=== PATIENT | female | born 1980 | race Caucasian/White ===

== ENCOUNTER → 2017-05-15 | Outpatient (CLI) | payer OTHER ==
[2016-09-21 19:32] VITALS: BP 132/52
[2017-05-15 11:02] LABS: BILIRUBIN,URINE NEGATIVE (NEGATIVE); BLOOD/HEMOGLOBIN,URINE 5+ (NEGATIVE); GLUCOSE, URINE NEGATIVE (NEGATIVE); KETONES,URINE NEGATIVE (NEGATIVE); LEUKOCYTE ESTERASE ,URINE NEGATIVE (NEGATIVE); NITRITES,URINE NEGATIVE (NEGATIVE); PROTEIN,URINE 1+ (NEGATIVE); UROBILINOGEN,URINE NORMAL (NORMAL)
[2017-05-15 11:12] LABS: APPEARANCE,URINE CLOUDY (CLEAR); BACTERIA,URINE NEGATIVE /HPF (NEGATIVE); COLOR,URINE YELLOW (YELLOW); RBC,URINE 20-30 /HPF (NEGATIVE); SQUAMOUS EPITHELIAL CELL,UR RARE /HPF (NEGATIVE)
[2017-05-15 11:15] LABS: BLOOD UREA NITROGEN 9 mg/dL (7-18); CARBON DIOXIDE 28.1 mmol/L (21-32); CHLORIDE 106 mmol/L (98-107); COR NA(FOR HYPERGLY) 142 mmol/L (136-145); CREATININE 0.73 mg/dL (0.55-1.02); GLUCOSE 128 mg/dL (65-99); SERUM PREGNANCY TEST, QUAL NEGATIVE <10 mIU/mL; SODIUM 141 mmol/L (136-145); eGFR BLACK RACES > 60 (>60); eGFR NON BLACK RACES > 60 (>60)
[2017-05-15 11:17] LABS: BASOPHILS % (AUTO) 0.5 % (0.2-1.0); EOSINOPHILS # (AUTO) 0.2 x10^3/uL (0.0-0.2); EOSINOPHILS % (AUTO) 3.2 % (0.9-2.9); HEMATOCRIT 35.9 % (36.0-47.0); HEMOGLOBIN 11.8 g/dL (12.0-16.0); LYMPHOCYTES # (AUTO) 1.3 X10^3/uL (1.3-2.9); LYMPHOCYTES % (AUTO) 22.4 % (21.0-51.0); MEAN CORPUSCULAR HEMOGLOBIN 26.3 pg (27.0-34.0); MEAN CORPUSCULAR HGB CONC 32.8 g/dL (33.0-35.0); MEAN CORPUSCULAR VOLUME 80.1 fL (80.0-100.0); MEAN PLATELET VOLUME 8.9 fL (7.4-11.0); MONOCYTES # (AUTO) 0.6 x10^3/uL (0.3-0.8); MONOCYTES % (AUTO) 11.4 % (0.0-13.0); NEUTROPHILS # (AUTO) 3.6 x10^3/uL (2.2-4.8); NEUTROPHILS % (AUTO) 62.5 % (42.0-75.0); PLATELET COUNT 272 X10^3/uL (150.0-450.0); RED BLOOD COUNT 4.48 X10^6/uL (3.5-5.4); RED CELL DISTRIBUTION WIDTH 16.4 % (11.6-16.5); WHITE BLOOD COUNT 5.7 X10^3/uL (3.6-10.0)
== END ==
LOC: LAB 10:13
PROVIDERS: ATTEND Specialist
DX: Z01.818 Encounter for other preprocedural examination (principal); R10.2 Pelvic and perineal pain; N92.5 Other specified irregular menstruation; N94.6 Dysmenorrhea, unspecified; D50.8 Other iron deficiency anemias
CPT/HCPCS: 36415; 80048; 81001; 84703; 85025; 85610; 85730; 86850; 86900; 86901; 87086

== ENCOUNTER 2017-05-18 06:19 | Inpatient (IN) | payer OTHER ==
[2017-05-18] MEDS ORDERED: NS 50 ML IV + SPIKE MINIBAG* 50 ML IV ONE (06:21)
[2017-05-18] MEDS ORDERED: NS 1/2 1000 ML IV 0 ML IV ONE (06:22)
[2017-05-18] MEDS ORDERED: ANCEF VIAL 1 GM ONE (06:22)
[2017-05-18] MEDS ORDERED: ANCEF VIAL 1 GM 1 GM in NS 50 ML IV + SPIKE MINIBAG* 50 ML IV PRN (06:27)
[2017-05-18] MEDS: D5 1/2 NS 1000 ML 1,000 ML IV SCH ×4 (06:30→17:30)
[2017-05-18] MEDS ORDERED: FENTANYL INJ 250 mcg ONE (07:05)
[2017-05-18 07:09] VITALS: BMI 36.6
[2017-05-18] MEDS ORDERED: NS IRRIGATION 1000 ML 1,000 ML IR ONE ×2 (07:38→08:45)
[2017-05-18 07:54] LABS: BILIRUBIN,URINE NEGATIVE (NEGATIVE); BLOOD/HEMOGLOBIN,URINE 2+ (NEGATIVE); GLUCOSE, URINE NEGATIVE (NEGATIVE); KETONES,URINE NEGATIVE (NEGATIVE); LEUKOCYTE ESTERASE ,URINE 1+ (NEGATIVE); NITRITES,URINE NEGATIVE (NEGATIVE); PROTEIN,URINE NEGATIVE (NEGATIVE); UROBILINOGEN,URINE NORMAL (NORMAL)
[2017-05-18 08:03] LABS: APPEARANCE,URINE CLEAR (CLEAR); COLOR,URINE YELLOW (YELLOW)
[2017-05-18 08:04] LABS: AMORPHOUS SEDIMENT,UR TRACE /HPF (NEGATIVE); BACTERIA,URINE NEGATIVE /HPF (NEGATIVE); SQUAMOUS EPITHELIAL CELL,UR RARE /HPF (NEGATIVE)
[2017-05-18] MEDS ORDERED: DILAUDID INJ ONE ×2 (08:36→09:42)
[2017-05-18] MEDS ORDERED: LR 1000 ML IV 1,000 ML IV ONE (09:01)
[2017-05-18] MEDS ORDERED: PHENERGAN INJ 25 MG IVP PRN (09:21)
[2017-05-18] MEDS ORDERED: ZOFRAN INJ 4 MG VIAL IVP PRN ×2 (09:21→11:06)
[2017-05-18] MEDS ORDERED: REGLAN INJ 10 MG VIAL IVP PRN (09:21)
[2017-05-18] MEDS ORDERED: BENADRYL INJ 50 MG VIAL IVP PRN ×2 (09:21→11:06)
[2017-05-18] MEDS ORDERED: MORPHINE SULFATE PCA 30 MG IVP PRN ×2 (09:25→11:06)
[2017-05-18] MEDS: DILAUDID INJ IVP PRN ×3 (09:45→10:00)
[2017-05-18] MEDS ORDERED: QUELICIN (OR ANECTINE) ONE (11:21)
[2017-05-18] MEDS ORDERED: NORCURON INJ 10 MG VIAL ONE (11:21)
[2017-05-18] MEDS ORDERED: REGLAN INJ 10 MG VIAL ONE (11:21)
[2017-05-18] MEDS ORDERED: NEOSTIGMINE INJ ONE (11:21)
[2017-05-18] MEDS ORDERED: VERSED ONE (11:21)
[2017-05-18] MEDS ORDERED: ROBINUL ONE (11:21)
[2017-05-18] MEDS ORDERED: DIPRIVAN VIAL ONE (11:21)
[2017-05-18] MEDS ORDERED: SUPRANE IN ONE (11:21)
[2017-05-18] MEDS ORDERED: XYLOCAINE 2 % (PLAIN) ONE (11:21)
[2017-05-18] MEDS ORDERED: ZOFRAN INJ 4 MG VIAL ONE (11:21)
[2017-05-18] MEDS: TORADOL 30 MG VIAL IVP PRN ×2 (14:08→19:03)
[2017-05-18] MEDS ORDERED: D5 1/2 NS 1000 ML 1,000 ML IV SCH (14:27)
[2017-05-19] MEDS: D5 1/2 NS 1000 ML 1,000 ML IV SCH ×4 (02:00→19:16)
[2017-05-19] MEDS: TORADOL 30 MG VIAL IVP PRN (03:30)
[2017-05-19 05:32] LABS: BASOPHILS % (AUTO) 0.1 % (0.2-1.0); BLOOD UREA NITROGEN 5 mg/dL (7-18); CALCIUM 7.1 mg/dL (8.5-10.1); CARBON DIOXIDE 25.5 mmol/L (21-32); CHLORIDE 105 mmol/L (98-107); COR NA(FOR HYPERGLY) 138 mmol/L (136-145); CREATININE 0.57 mg/dL (0.55-1.02); EOSINOPHILS # (AUTO) 0.1 x10^3/uL (0.0-0.2); EOSINOPHILS % (AUTO) 1.3 % (0.9-2.9); GLUCOSE 121 mg/dL (65-99); HEMATOCRIT 28.2 % (36.0-47.0); HEMOGLOBIN 9.6 g/dL (12.0-16.0); LYMPHOCYTES # (AUTO) 1.2 X10^3/uL (1.3-2.9); LYMPHOCYTES % (AUTO) 15.2 % (21.0-51.0); MEAN CORPUSCULAR HEMOGLOBIN 27.8 pg (27.0-34.0); MEAN CORPUSCULAR HGB CONC 33.9 g/dL (33.0-35.0); MEAN CORPUSCULAR VOLUME 81.9 fL (80.0-100.0); MEAN PLATELET VOLUME 8.8 fL (7.4-11.0); MONOCYTES # (AUTO) 0.6 x10^3/uL (0.3-0.8); MONOCYTES % (AUTO) 7.8 % (0.0-13.0); NEUTROPHILS # (AUTO) 5.8 x10^3/uL (2.2-4.8); NEUTROPHILS % (AUTO) 75.6 % (42.0-75.0); PLATELET COUNT 221 X10^3/uL (150.0-450.0); RED BLOOD COUNT 3.44 X10^6/uL (3.5-5.4); RED CELL DISTRIBUTION WIDTH 16.7 % (11.6-16.5); SODIUM 137 mmol/L (136-145); WHITE BLOOD COUNT 7.6 X10^3/uL (3.6-10.0); eGFR BLACK RACES > 60 (>60); eGFR NON BLACK RACES > 60 (>60)
[2017-05-19] MEDS: FERROUS SULFATE PO SCH ×2 (06:29→18:20)
[2017-05-19] MEDS: BACTROBAN OINT TOP SCH ×3 (06:30→21:10)
[2017-05-19] MEDS: COLACE CAP 100 MG PO SCH ×2 (09:45→21:09)
[2017-05-19] MEDS: MOTRIN TAB 800 MG PO PRN ×2 (09:47→23:28)
[2017-05-19] MEDS: PERCOCET TAB 5/325 MG PO PRN (12:10)
[2017-05-20] MEDS: PERCOCET TAB 5/325 MG PO PRN (04:49)
[2017-05-20] MEDS: FERROUS SULFATE PO SCH (06:05)
[2017-05-20] MEDS: BACTROBAN OINT TOP SCH (06:05)
[2017-05-20] MEDS: D5 1/2 NS 1000 ML 1,000 ML IV SCH (06:16)
[2017-05-20 08:38] VITALS: BP 107/52
[2017-05-20] MEDS: COLACE CAP 100 MG PO SCH (09:22)
== END 2017-05-20 09:45 | disposition home or self-care (01) | DRG 743 ==
LOC: OBS 06:19 → MED/SURG 06:23
PROVIDERS: ADMIT Specialist; ATTEND Specialist
PROC: 0UTC0ZZ Resection of Cervix, Open Approach (ICD-10-PCS; 2017-05-18)
PROC: 0UB60ZZ Excision of Left Fallopian Tube, Open Approach (ICD-10-PCS; 2017-05-18)
PROC: 0UT90ZZ Resection of Uterus, Open Approach (ICD-10-PCS; principal; 2017-05-18 07:30)
DX: D25.1 Intramural leiomyoma of uterus (principal); D50.8 Other iron deficiency anemias; N92.5 Other specified irregular menstruation; N94.4 Primary dysmenorrhea; R10.2 Pelvic and perineal pain
CPT/HCPCS: 36415; 80048; 81001; 85025; 94760; A4216; A4222; J0330; J0690; J1170; J1885; J2001; J2250; J2271; J2405; J2710; J2765; J3010; J3490; J7042; J7120